=== PATIENT | female | born 1975 | race Caucasian/White ===

== ENCOUNTER 2024-04-14 07:53 | Day surgery (SDC) | payer BC ==
[~2024-04-14] VITALS: Ht 170.2 cm; Wt 79.4 kg
[~2024-04-14 07:53] MED LIST: Ondansetron 4 MG/2 ML VIAL IV PRN
[2024-04-14] MEDS ORDERED: LR 1,000 ML IV ONE (08:45)
[2024-04-14 10:55] VITALS: BP 103/76; PULSE 74; TEMP 97.5
--- NOTE | 2024-04-14 10:55 | NUR ---
PATIENT AMBULATED TO CHAIR WITH STEADY GAIT, ASSIST OF 2. ALERT AND AWAKE. DENIES PAIN, NAUSEA AND SHORTNESS OF BREATH. BREATHING REGULAR AND UNLABORED ON ROOM AIR. SKIN WARM AND DRY. IV IN PLACE. NURSE HANDOFF COMPLETED IN ROOM. SEE CHART FOR VITAL SIGNS. PATIENT HAD CRANBERRY JUICE AND APPLESAUCE, NO DYSPHAGIA. CALL LIGHT IN REACH. SPOUSE PRESENT IN ROOM.
[2024-04-14 11:00] VITALS: BP 103/74; PULSE 73
[2024-04-14 11:15] VITALS: BP 110/77; PULSE 64
[2024-04-14 11:30] VITALS: BP 110/78; PULSE 68
[2024-04-14 11:37] VITALS: BP 14/79; PULSE 69; TEMP 97.6
--- NOTE | 2024-04-14 11:55 | NUR ---
1140: DISCHARGE TEACHING COMPLETED WITH PRINTED EDUCATION AND INSTRUCTIONS SENT HOME WITH PATIENT. PATIENT VERBALIZED UNDERSTANDING OF TEACHING. 1142: IV REMOVED. GAUZE AND COBAN PLACED OVER SITE. 1152: MET WITH PATIENT AND SPOUSE IN ROOM. 1155: PATIENT DISCHARGED HOME WITH SPOUSE TRANSPORT.
== END 2024-04-14 11:55 | disposition home or self-care (01) ==
LOC: SDCO 07:53
DX: K63.5 Polyp of colon (principal); K31.7 Polyp of stomach and duodenum; K92.1 Melena; R63.0 Anorexia; K57.30 Diverticulosis of large intestine without perforation or abscess without bleeding; K59.00 Constipation, unspecified
CPT/HCPCS: J2704; J7120